=== PATIENT | male | born 1980 | race Caucasian/White ===

== ENCOUNTER 2019-09-07 22:09 | Inpatient (IN) | payer OTHER ==
[2019-09-07] MEDS ORDERED: LIDOCAINE 1% INJ 10MG/ML (20 ML MDV) SQ ONE (22:19)
[2019-09-07] MEDS ORDERED: DIPH,PERTUS(ACELL)TETVAC-LF 0.5 ML VIAL IM ONE (22:20)
--- NOTE | 2019-09-07 23:44 | ED ---
Wound/Laceration HPI - General Source: patient Mode of arrival: EMS Limitations: no limitations <Elisha Medina - Last Filed: 09/07/19 22:32> <Castro Ramsey - Last Filed: 09/08/19 03:39> - General Chief Complaint: Wound/Laceration Stated Complaint: mental health, neck injury Time Seen by Provider: 09/07/19 22:11 - History of Present Illness Initial Comments: 38-year-old male who is a with history of depression, suicide attempt on prozac presenting to the ER today for cc of suicide attempt. Patient took a kitchen knife intentionally to the left side of his neck. He staets he was scared then stopped. Patient parents state that there is guns in the home, patient has one laid out near him when the police arrived. Patient states he only cut superficially he states he couldnt bring himself to cut deeper. Patient denies ingesting any medications in attempt at suicide. Patient states he has had a little to drink today. Patient denies any other complaints. He is cooperative on arrival, agreeable to speak to psychiatric services, who came into the room on arrival--patient did admit to suicidal attempt. Denies homicidal. Petitioned by psychiatry nurse. (Elisha Medina) - Related Data Home Medications Medication Instructions Recorded Confirmed FLUoxetine HCL [PROzac] 40 mg PO DAILY 03/05/15 09/02/15 Dextroamphetamine/Amphetamine 20 mg PO DAILY 09/02/15 09/02/15 [Adderall] Allergies Allergy/AdvReac Type Severity Reaction Status Date / Time venlafaxine HCl Allergy Unknown Verified 09/02/15 20:13 [From Effexor] Review of Systems ROS Other: All systems not noted in ROS Statement are negative. <Elisha Medina - Last Filed: 09/07/19 22:32> ROS Other: All systems not noted in ROS Statement are negative. <Castro Ramsey - Last Filed: 09/08/19 03:39> ROS Statement: Those systems with pertinent positive or pertinent negative responses have been documented in the HPI. Past Medical History Past Medical History: No Reported History Additional Past Medical History / Comment(s): ADHD History of Any Multi-Drug Resistant Organisms: None Reported Past Surgical History: Hernia Repair Additional Past Surgical History / Comment(s): polynodial cyst Past Psychological History: ADD/ADHD, Depression, PTSD Smoking Status: Current every day smoker Past Alcohol Use History: None Reported Past Drug Use History: None Reported <Elisha Medina - Last Filed: 09/07/19 22:32> General Exam Limitations: no limitations <Elisha Medina - Last Filed: 09/07/19 22:32> - General Exam Comments Initial Comments: General: The patient is awake and alert, in no distress Eye: +3 mm pupils are equal, round and reactive to light, extra-ocular movements are intact. No nystagmus. There is normal conjunctiva bilaterally. No signs of icterus. Ears, nose, mouth and throat: There are moist mucous membranes and no oral lesions. Neck: The neck is supple, there is no tenderness or JVD. Cardiovascular: There is a regular rate and rhythm. No murmur, rub or gallop is appreciated. Respiratory: Lungs are clear to auscultation, respirations are non-labored, breath sounds are equal. No wheezes, stridor, rales, or rhonchi. Gastrointestinal: [Soft, non-distended, non-tender abdomen without masses or organomegaly noted. There is no rebound or guarding present. Musculoskeletal: Normal ROM, no tenderness. Strength 5/5. Sensation intact. Pulses equal bilaterally 2+. Neurological: A&O x 3. CN II-XII intact grossly, There are no obvious motor or sensory deficits. Coordination appears grossly intact. Speech is normal. Skin: Skin is warm and dry and no rashes. 6 cm superficial laceration to the left anterior aspect of the neck. No deep puncture present. No active bleeding. No other areas of laceration noted. Linear horizontal. Psychiatric: Cooperative, flat affect. (Elisha Medina) Course Vital Signs 09/07/19 09/08/19 22:13 01:00 Temperature 98.0 F Pulse Rate 81 69 Respiratory 18 18 Rate Blood Pressure 129/77 121/74 O2 Sat by Pulse 95 98 Oximetry Procedures - Laceration Laceration #1 Consent Obtained: verbal consent Indication: laceration Site: neck Size (cm): 6 Description: linear Depth: simple, single layer Anesthetic Used: lidocaine 1% Anesthesia Technique: local infiltration Amount (mls): 2 Pre-repair: wound explored, irrigated extensively, deep structures intact Type of Sutures: nylon Size of Sutures: 4-0 Number of Sutures: 10 Technique: simple, interrupted Patient Tolerated Procedure: well, no complications <Elisha Medina - Last Filed: 09/07/19 22:32> Medical Decision Making <Elisha Medina - Last Filed: 09/07/19 22:32> - Lab Data Result diagrams: 09/08/19 00:54 09/08/19 00:54 <Castro Ramsey - Last Filed: 09/08/19 03:39> - Medical Decision Making [age] male presented for intentional laceration to the left side of the neck it is superficial in nature. There is no evidence of deep puncture. Patient's bleeding controlled on arrival. Patient has no focal neurological deficit he appears well he has flat affect. Patient states this was a suicide attempt patient was petitioned. Patient denies homicidal ideations. Patient evaluated by EPS nurse, recommended transfer to [facility] for inpatient services. Patient agree able, cooperative in ER. Laceration was repaired, no complication. Needs removal in 7-10 days. (Elisha Medina) I saw this patient in conjunction with the physician employee relations assistant. I performed independent history and physical exam. Agree with case management.. I did see the patient for purposes of following the clinical certification. (Castro Ramsey) - Lab Data Lab Results 09/08/19 09/08/19 Range/Units 00:54 00:54 WBC 12.0 H (3.8-10.6) k/uL RBC 4.87 (4.30-5.90) m/uL Hgb 14.6 (13.0-17.5) gm/dL Hct 44.3 (39.0-53.0) % MCV 90.8 (80.0-100.0) fL MCH 30.0 (25.0-35.0) pg MCHC 33.0 (31.0-37.0) g/dL RDW 14.1 (11.5-15.5) % Plt Count 243 (150-450) k/uL Neutrophils % 82 % Lymphocytes % 12 % Monocytes % 4 % Eosinophils % 0 % Basophils % 0 % Neutrophils # 9.9 H (1.3-7.7) k/uL Lymphocytes # 1.4 (1.0-4.8) k/uL Monocytes # 0.5 (0-1.0) k/uL Eosinophils # 0.0 (0-0.7) k/uL Basophils # 0.0 (0-0.2) k/uL Sodium 138 (137-145) mmol/L Potassium 4.7 (3.5-5.1) mmol/L Chloride 104 (98-107) mmol/L Carbon Dioxide 30 (22-30) mmol/L Anion Gap 4 mmol/L BUN 13 (9-20) mg/dL Creatinine 0.74 (0.66-1.25) mg/dL Est GFR (CKD-EPI)AfAm >90 (>60 ml/min/1.73 sqM) Est GFR (CKD-EPI)NonAf >90 (>60 ml/min/1.73 sqM) Glucose 91 (74-99) mg/dL Calcium 9.6 (8.4-10.2) mg/dL Total Bilirubin 0.4 (0.2-1.3) mg/dL AST 41 (17-59) U/L ALT 32 (4-49) U/L Alkaline Phosphatase 58 (38-126) U/L Total Protein 7.6 (6.3-8.2) g/dL Albumin 4.5 (3.5-5.0) g/dL Disposition Is patient prescribed a controlled substance at d/c from ED?: No Time of Disposition: 23:47 - Out of Hospital Transfer - Req. Specs Out of Hospital Transfer - Requested Specifics[facility] <Elisha Medina - Last Filed: 09/07/19 22:32> <Castro Ramsey - Last Filed: 09/08/19 03:39> Clinical Impression: Laceration of neck, Intentional self-harm by knife, Suicidal ideation, History of posttraumatic stress disorder (PTSD), History of depression Disposition: TRANSFER TO PSYCH HOSP/UNIT Condition: Serious Referrals: None,Stated [Primary Care Provider] - 1-2 days
[2019-09-08 01:13] LABS: Basophils % (A) 0 %; Eosinophils % (A) 0 %; HCT 44.3 % (39.0-53.0); HGB 14.6 gm/dL (13.0-17.5); Lymphocytes # (A) 1.4 k/uL (1.0-4.8); Lymphocytes % (A) 12 %; MCV 90.8 fL (80.0-100.0); Mean Platelet Volume 7.2; Monocytes # (A) 0.5 k/uL (0-1.0); Monocytes % (A) 4 %; Neutrophils # (A) 9.9 k/uL (1.3-7.7); Neutrophils % (A) 82 %; Platelet Count 243 k/uL (150-450); RBC 4.87 m/uL (4.30-5.90); RDW 14.1 % (11.5-15.5)
[2019-09-08 01:32] LABS: ALT 32 U/L (4-49); AST 41 U/L (17-59); African American GFR (CKD) >90 (>60 ml/min/1.73 sqM); Albumin 4.5 g/dL (3.5-5.0); Alkaline Phosphatase 58 U/L (38-126); Anion Gap 4 mmol/L; Blood Urea Nitrogen 13 mg/dL (9-20); Calcium 9.6 mg/dL (8.4-10.2); Carbon Dioxide 30 mmol/L (22-30); Chloride 104 mmol/L (98-107); Glucose 91 mg/dL (74-99); Non-African American GFR(CKD) >90 (>60 ml/min/1.73 sqM); Potassium 4.7 mmol/L (3.5-5.1); Sodium 138 mmol/L (137-145); Total Bilirubin 0.4 mg/dL (0.2-1.3); Total Protein 7.6 g/dL (6.3-8.2)
[2019-09-08] MEDS ORDERED: ONDANSETRON 4 MG/2 ML VIAL IVP STA (01:35)
[2019-09-08] MEDS ORDERED: MAG HYDROX/AL HYDROX/SIMETH 30 ML CUP PO PRN (05:07)
[2019-09-08] MEDS ORDERED: QUEtiapine 50 MG TAB PO PRN (05:12)
[2019-09-08 07:30] LABS: Appearance,Urine Clear (Clear); Bilirubin,Urine Negative (Negative); Blood,Urine Negative (Negative); Color,Urine Yellow; Glucose,Urine (UA) Negative (Negative); Ketones,Urine 1+ (Negative); Leukocyte Esterase,Urine Negative (Negative); Nitrite,Urine Negative (Negative); PH, Urine 6.5 (5.0-8.0); Protein,Urine Negative (Negative); Specific Gravity,Urine 1.017 (1.001-1.035); Urobilinogen,Urine <2.0 mg/dL (<2.0)
[2019-09-08 07:45] LABS: Urn Cannabinoid Scrn Detected (NotDetected)
[2019-09-08 07:46] LABS: Amphetamine Screen,Urine Not Detected (NotDetected); Barbiturate Screen,Urine Not Detected (NotDetected); Benzodiazepines Screen,Urine Detected (NotDetected); Cocaine Screen,Urine Not Detected (NotDetected); Methadone Screen, Urine Not Detected (NotDetected); Opiate Screen,Urine Not Detected (NotDetected); Oxycodone Screen, Urine Not Detected (NotDetected); Phencyclidine Screen,Urine Not Detected (NotDetected); Tricyclic Antidepressant,Urine Not Detected (NotDetected)
[2019-09-08 08:43] LABS: Basophils # (A) 0.1 k/uL (0-0.2); Basophils % (A) 1 %; Eosinophils # (A) 0.1 k/uL (0-0.7); Eosinophils % (A) 1 %; HCT 46.8 % (39.0-53.0); HGB 15.3 gm/dL (13.0-17.5); Lymphocytes # (A) 1.7 k/uL (1.0-4.8); Lymphocytes % (A) 17 %; MCH 30.2 pg (25.0-35.0); MCHC 32.7 g/dL (31.0-37.0); MCV 92.4 fL (80.0-100.0); Mean Platelet Volume 7.1; Monocytes # (A) 0.6 k/uL (0-1.0); Monocytes % (A) 6 %; Neutrophils # (A) 7.1 k/uL (1.3-7.7); Neutrophils % (A) 73 %; Platelet Count 256 k/uL (150-450); RBC 5.07 m/uL (4.30-5.90); RDW 14.2 % (11.5-15.5); WBC 9.6 k/uL (3.8-10.6)
[2019-09-08 08:54] LABS: ALT 36 U/L (4-49); AST 41 U/L (17-59); African American GFR (CKD) >90 (>60 ml/min/1.73 sqM); Albumin 4.6 g/dL (3.5-5.0); Alkaline Phosphatase 64 U/L (38-126); Anion Gap 6 mmol/L; Blood Urea Nitrogen 15 mg/dL (9-20); Calcium 9.7 mg/dL (8.4-10.2); Carbon Dioxide 29 mmol/L (22-30); Chloride 103 mmol/L (98-107); Cholesterol 241 mg/dL (<200); Glucose 84 mg/dL (74-99); Non-African American GFR(CKD) >90 (>60 ml/min/1.73 sqM); Potassium 4.3 mmol/L (3.5-5.1); Sodium 138 mmol/L (137-145); Total Bilirubin 0.9 mg/dL (0.2-1.3); Total Protein 7.8 g/dL (6.3-8.2); Triglycerides 72 mg/dL (<150)
[2019-09-08 09:00] LABS: LDL Cholesterol,Calculated 99 mg/dL (0-99)
[2019-09-08] MEDS ORDERED: FLUoxetine HCL 20 MG CAP PO SCH (09:00)
[2019-09-08 09:09] LABS: HDL Cholesterol 128 mg/dL (40-60)
[2019-09-08] MEDS ORDERED: LORazepam 1 MG TAB PO PRN (12:16)
[2019-09-08] MEDS ORDERED: QUEtiapine 100 MG TAB PO PRN (15:40)
--- NOTE | 2019-09-08 15:52 | P.HP ---
Psychiatric H&P - . H&P Date: 09/08/19 History & Physical: Allergies Allergy/AdvReac Type Severity Reaction Status Date / Time venlafaxine HCl Allergy Unknown Verified 09/02/15 20:13 [From Effexor] Vital Signs Temp 97.8 F 09/08/19 07:28 Pulse 66 09/08/19 07:28 Resp 18 09/08/19 07:28 BP 133/78 09/08/19 07:28 Pulse Ox 97 09/08/19 07:28 Intake & Output 09/07/19 09/08/19 09/08/19 18:59 06:59 18:59 Weight 58.967 kg 58.967 kg Laboratory Last Values WBC 9.6 k/uL (3.8-10.6) 09/08/19 08:25 RBC 5.07 m/uL (4.30-5.90) 09/08/19 08:25 Hgb 15.3 gm/dL (13.0-17.5) 09/08/19 08:25 Hct 46.8 % (39.0-53.0) 09/08/19 08:25 MCV 92.4 fL (80.0-100.0) 09/08/19 08:25 MCH 30.2 pg (25.0-35.0) 09/08/19 08:25 MCHC 32.7 g/dL (31.0-37.0) 09/08/19 08:25 RDW 14.2 % (11.5-15.5) 09/08/19 08:25 Plt Count 256 k/uL (150-450) 09/08/19 08:25 Neutrophils % 73 % 09/08/19 08:25 Lymphocytes % 17 % 09/08/19 08:25 Monocytes % 6 % 09/08/19 08:25 Eosinophils % 1 % 09/08/19 08:25 Basophils % 1 % 09/08/19 08:25 Neutrophils # 7.1 k/uL (1.3-7.7) 09/08/19 08:25 Lymphocytes # 1.7 k/uL (1.0-4.8) 09/08/19 08:25 Monocytes # 0.6 k/uL (0-1.0) 09/08/19 08:25 Eosinophils # 0.1 k/uL (0-0.7) 09/08/19 08:25 Basophils # 0.1 k/uL (0-0.2) 09/08/19 08:25 Sodium 138 mmol/L (137-145) 09/08/19 08:25 Potassium 4.3 mmol/L (3.5-5.1) 09/08/19 08:25 Chloride 103 mmol/L (98-107) 09/08/19 08:25 Carbon Dioxide 29 mmol/L (22-30) 09/08/19 08:25 Anion Gap 6 mmol/L 09/08/19 08:25 BUN 15 mg/dL (9-20) 09/08/19 08:25 Creatinine 0.79 mg/dL (0.66-1.25) 09/08/19 08:25 Est GFR (CKD-EPI)AfAm >90 (>60 ml/min/1.73 sqM) 09/08/19 08:25 Est GFR (CKD-EPI)NonAf >90 (>60 ml/min/1.73 sqM) 09/08/19 08:25 Glucose 84 mg/dL (74-99) 09/08/19 08:25 Calcium 9.7 mg/dL (8.4-10.2) 09/08/19 08:25 Total Bilirubin 0.9 mg/dL (0.2-1.3) 09/08/19 08:25 AST 41 U/L (17-59) 09/08/19 08:25 ALT 36 U/L (4-49) 09/08/19 08:25 Alkaline Phosphatase 64 U/L (38-126) 09/08/19 08:25 Total Protein 7.8 g/dL (6.3-8.2) 09/08/19 08:25 Albumin 4.6 g/dL (3.5-5.0) 09/08/19 08:25 Triglycerides 72 mg/dL (<150) 09/08/19 08:25 Cholesterol 241 mg/dL (<200) H 09/08/19 08:25 LDL Cholesterol, Calc 99 mg/dL (0-99) 09/08/19 08:25 HDL Cholesterol 128 mg/dL (40-60) H 09/08/19 08:25 TSH 1.110 mIU/L (0.465-4.680) 09/08/19 08:25 Urine Color Yellow 09/08/19 07:00 Urine Appearance Clear (Clear) 09/08/19 07:00 Urine pH 6.5 (5.0-8.0) 09/08/19 07:00 Ur Specific [place] 1.017 (1.001-1.035) 09/08/19 07:00 Urine Protein Negative (Negative) 09/08/19 07:00 Urine Glucose (UA) Negative (Negative) 09/08/19 07:00 Urine Ketones 1+ (Negative) H 09/08/19 07:00 Urine Blood Negative (Negative) 09/08/19 07:00 Urine Nitrite Negative (Negative) 09/08/19 07:00 Urine Bilirubin Negative (Negative) 09/08/19 07:00 Urine Urobilinogen <2.0 mg/dL (<2.0) 09/08/19 07:00 Ur Leukocyte Esterase Negative (Negative) 09/08/19 07:00 Urine Opiates Screen Not Detected (NotDetected) 09/08/19 07:00 Ur Oxycodone Screen Not Detected (NotDetected) 09/08/19 07:00 Urine Methadone Screen Not Detected (NotDetected) 09/08/19 07:00 Ur Propoxyphene Screen Not Detected (NotDetected) 09/08/19 07:00 Ur Barbiturates Screen Not Detected (NotDetected) 09/08/19 07:00 U Tricyclic Antidepress Not Detected (NotDetected) 09/08/19 07:00 Ur Phencyclidine Scrn Not Detected (NotDetected) 09/08/19 07:00 Ur Amphetamines Screen Not Detected (NotDetected) 09/08/19 07:00 U Methamphetamines Scrn Not Detected (NotDetected) 09/08/19 07:00 U Benzodiazepines Scrn Detected (NotDetected) H 09/08/19 07:00 Urine Cocaine Screen Not Detected (NotDetected) 09/08/19 07:00 U Marijuana (THC) Screen Detected (NotDetected) H 09/08/19 07:00 09/08/19 15:44 IDENTIFYING DATA: 38-year-old male patient HPI: Patient admitted to the inpatient psychiatric unit [facility] on an involuntary basis. Petition stating "patient admitted he slit his neck open with a knife in an attempt to kill himself." Patient related that he has been feeling depression. He states that someone had contacted the police regarding doing his check and he had a laceration to his neck on that he had cut with his knife. He says at the time he did that he did have thoughts of suicide. He has regrets about doing that. Says is been dealing with alcohol use for 10-15 years. He had some setbacks with his alcohol use over the past few days and relays when he picked up a bottle he got depressed. He describes having a lot of panic attacks. He says last week he also was dealing with having lost his dog and also got into a fight with his brother. PAST PSYCHIATRIC HISTORY: Patient is currently in active treatment with a [facility]. He was going to different programming 3-4 days a week. He had been taking Prozac 60 mg daily which was just increased to 80 mg daily. Says Prozac is the only one that has worked at the [place] for him. He has been on multiple different antidepressants. Lexapro works really well for him but was not affordable. He does state that Seroquel helps him with sleep. He has been at least 200 mg in the past. He also has a history of PTSD with nightmares and flashbacks. He has a history of ADHD. He prefers to be off of benzodiazepines. He denies any history of suicide attempts. This is his first inpatient psychiatric admission. PMH: Per chart history, history of hernia repair and cyst ALLERGIES: Venlafaxine MEDICATIONS: Tylenol when necessary, Maalox when necessary, Prozac, Ativan when necessary, milk of magnesia when necessary, Seroquel when necessary, Geodon when necessary CHEMICAL DEPENDENCY HISTORY: Patient has a history of ten-year alexis with substances relaying that he initially was on pain pills that she got off and then alcohol. He said the past few days is had a few different slips with alcohol use. He has had some sobriety prior. FAMILY PSYCHIATRIC HISTORY: Sister with some depression and alcoholism. FAMILY CHEMICAL DEPENDENCY HISTORY: Sister with alcoholism SOCIAL HISTORY: In an apartment by himself. He was in the [employer] in [place]. He is on disability through the [employer]. He does not have any children. He has been 7 years and currently . MENTAL STATUS EXAM: He is alert and cooperative with the interview. He does present as tearful at times. His mood is depressed. He denies any history of hallucinations. He denies any current thoughts of harm to self or others. No evidence of active psychosis. He is not displaying any agitation. Cognitively appears to be grossly intact. I do not note any significant disorientation and memory disturbance. His insight is adequate, judgment shows evidence of recent impairment. There is a scar noted on his neck. STRENGTHS/WEAKNESSES: Strengthsin active outpatient treatment Weaknessescoping skills INTELLECTUAL FUNCTIONING: Average IMPRESSIONS: Major depressive disorder, recurrent; PTSD; history of alcohol use disorder; history opioid use disorder PLAN: Patient is admitted to the inpatient psychiatric unit [facility] on an involuntary basis, patient is agreeable to sign an adult formal voluntary form. He is placed on SP 15 minute precautions. He'll participate in group and activity therapies. Baseline laboratory workup will be done the patient medical consultation will be ordered. We'll titrate his Prozac as planned to 80 mg daily to help with him depression and anxiety components. We'll also titrate Seroquel up to 100 mg at at bedtime as needed to see if this can help with aspects of mood/anxiety/PTSD symptoms. We will look into any support systems. Estimated length of stay is 5-7 days. Prognosis is guarded.
--- NOTE | 2019-09-08 16:55 | P.HPMEDMHU ---
History of Present Illness H&P Date: 09/08/19 Chief Complaint: depression Patient is a 38-year-old male with a past medical history of posttraumatic stress disorder who presented to the emergency department after attempting this with his throat. He was subsequently admitted to the mental health unit for suicidal ideation. Patient seen and examined. He denies any difficulty swallowing vomiting or neck pain. He states he used a kitchen knife that was clean slice his neck. He denies any neck pain. He denies any fever, cough, nausea, vomiting, diarrhea or constipation. He states that his appetite has been down he has lost about 10 pounds in the last month secondary to his depression. He is being lesion is in the mental health unit and he feels as though his outpatient [facility] and meds were enough to help him. Review of Systems Pertinent positives and negatives as discussed in HPI, a complete review of systems was performed and all other systems are negative. Past Medical History Past Medical History: No Reported History Additional Past Medical History / Comment(s): ADHD History of Any Multi-Drug Resistant Organisms: None Reported Past Surgical History: Hernia Repair Additional Past Surgical History / Comment(s): polynodial cyst Past Psychological History: ADD/ADHD, Depression, PTSD Smoking Status: Current every day smoker Past Alcohol Use History: None Reported Past Drug Use History: None Reported - Past Family History Father Family Medical History: Hypertension Medications and Allergies Home Medications Medication Instructions Recorded Confirmed Type FLUoxetine HCL [PROzac] 80 mg PO DAILY 03/05/15 09/08/19 History QUEtiapine [SEROquel] 50 mg PO HS PRN 09/08/19 09/08/19 History Allergies Allergy/AdvReac Type Severity Reaction Status Date / Time venlafaxine HCl Allergy Unknown Verified 09/02/15 20:13 [From Effexor] Physical Exam Osteopathic Statement: *. No significant issues noted on an osteopathic structural exam other than those noted in the History and Physical/Consult. Vitals: Vital Signs Temp Pulse Pulse Resp BP BP Pulse Ox 09/08/19 07:28 97.8 F 66 18 133/78 97 09/08/19 06:53 75 18 115/67 100 09/08/19 03:36 97.5 F L 70 18 127/67 99 09/08/19 01:00 69 18 121/74 98 09/07/19 22:13 98.0 F 81 18 129/77 95 Intake and Output 09/08/19 09/08/19 09/08/19 06:59 14:59 22:59 Other: Weight 58.967 kg General: non toxic, no distress, appears at stated age, normal weight Derm: Large laceration to right side of neck with [address], no warmth, no erythema, no drainage no unusual ecchymoses, warm, dry Head: atraumatic, normocephalic, symmetric Eyes: EOMI, no lid lag, anicteric sclera, pupils equal round reactive to light ENT: Nose and ears atraumatic, no thrush, no pharyngeal erythema Neck: No thyromegaly, no cervical lymphadenopathy, trachea midline, supple Mouth: no lip lesion, mucus membranes moist Cardiovascular: S1S2 reg, no murmur, positive posterior tibial pulse bilateral, no edema, capillary refill less than 2 seconds Lungs: CTA bilateral, no rhonchi, no rales , no accessory muscle use Abdominal: soft, nontender to palpation, no guarding, no appreciable organomegaly, normal bowel sounds Ext: no gross muscle atrophy, muscle strength 5 out of 5 in all 4 extremities grossly, no contractures, Neuro: CN II-XI grossly intact, light touch intact all 4 extremities, finger to nose within normal limits, Psych: Alert, oriented, appropriate affect Cranial Nerve Examination - Cranial Nerves Cranial Nerve II- Optic: Intact Cranial Nerve III- Oculomotor: Intact Cranial Nerve IV- Trochlear: Intact Cranial Nerve V- Trigeminal: Intact Cranial Nerve - Abducens: Intact Cranial Nerve VII- Facial: Intact Cranial Nerve VIII- Auditory: Intact Cranial Nerve IX- Glossopharyngeal: Intact Cranial Nerve X- Vagus: Intact Cranial Nerve XI- Accessory: Intact Cranial Nerve XII- Hypoglossal: Intact Results CBC & Chem 7: 09/08/19 08:25 09/08/19 08:25 Labs: Abnormal Lab Results - Last 24 Hours (Table) 09/08/19 09/08/19 09/08/19 Range/Units 00:54 07:00 08:25 WBC 12.0 H (3.8-10.6) k/uL Neutrophils # 9.9 H (1.3-7.7) k/uL Cholesterol 241 H (<200) mg/dL HDL Cholesterol 128 H (40-60) mg/dL Urine Ketones 1+ H (Negative) U Benzodiazepines Scrn Detected H (NotDetected) U Marijuana (THC) Screen Detected H (NotDetected) Thrombosis Risk Factor Assmnt - Choose All That Apply Any of the Below Risk Factors Present?: No Other Risk Factors: No Other congenital or acquired thrombophilia - If yes, enter type in comment: No Thrombosis Risk Factor Assessment Level: Very Low Risk Assessment and Plan Assessment: Laceration of the neck -[address] -Nursing to check and monitor every shift for signs of infection -Sutures to be removed in 7-10 days Tobacco abuse -Cessation -Nicotine replacement Depression -Your psych management Thank you for allowing us to participate in the care of this pleasant patient. Do not hesitate to contact us with questions. Someone can be reached from the [facility] hospitalist group all hours of the day at [phone] or via perfect serve.
[2019-09-08 19:41] LABS: Hemoglobin A1C 5.2 % (4.0-6.0)
[2019-09-09] MEDS: ZIPRASIDONE 20 MG VIAL IM PRN (01:36)
[2019-09-09] MEDS: FLUoxetine HCL 20 MG CAP PO SCH (08:02)
[2019-09-09] MEDS ORDERED: QUEtiapine 25 MG TAB PO STA (14:13)
[2019-09-09] MEDS ORDERED: QUEtiapine 100 MG TAB PO PRN (14:35)
--- NOTE | 2019-09-09 14:38 | P.PN ---
Progress Note - Text Progress Note Date: 09/09/19 Interval history: Patient is seen in cross coverage again today. He states that after he took the Seroquel last night he was still awake of for quite a while, then did receive a when necessary Geodon which she was finally able to fall asleep after. He does describe that his anxiety is a little bit better today. He also did receive a 1 time dose of Seroquel not long prior to our discussion of 25 mg. He does not seem to voice any adverse psychotropic medication side effects. Mental status exam: He is alert and cooperative. He does describe his anxiety levels a little bit better today. He does continue to have some ongoing anxiety. Mood jenkins overall seems to be improved. He denies any current thoughts of harm to self. He does not voice any thoughts of harm to others. He describes more recent stressors. No active evidence of psychosis. Plan: Patient will be titrated up on Seroquel 250 mg at bedtime as needed for severe anxiety and to assist with mood augmentation. He states he's been up to at least 200 mg in the past. He does not verbalize any adverse psychotropic med ication side effects. Continue to monitor his ongoing response to treatment monitor for any medication side effects.
[2019-09-09] MEDS: MELATONIN 3 MG TABLET PO PRN (21:36)
[2019-09-10] MEDS ORDERED: QUEtiapine 50 MG TAB PO STA (01:49)
[2019-09-10] MEDS: FLUoxetine HCL 20 MG CAP PO SCH (07:32)
[2019-09-10] MEDS: ZIPRASIDONE 20 MG VIAL IM PRN (07:33)
[2019-09-10] MEDS: NICOTINE 7MG/24HR PATCH TRANSDERM SCH (13:26)
[2019-09-10] MEDS: QUEtiapine 25 MG TAB PO PRN (13:26)
--- NOTE | 2019-09-10 13:27 | P.PN ---
Subjective Progress Note Date: 09/10/19 The patient seen in the chart was reviewed. The patient reports feeling very anxious and unhappy about being in the hospital. The patient reports periods of anxiety and difficulty dealing with the the unit environment. The patient reports poor sleep at night but denies any nightmares last night. The patient continues to report frequent panic attacks and difficulty coping. He reports feeling angry and upset and feels like nobody is hearing him. The patient denies any auditory or visual hallucinations. He denies any active suicidal or homicidal ideations at this time. The patient is requesting an increase in his Seroquel and wants to be on melatonin for sleep. Objective - Vital Signs Vital signs: Vital Signs Temp 98.1 F 09/10/19 06:38 Pulse 73 09/10/19 06:38 Resp 18 09/10/19 06:38 BP 118/68 09/10/19 06:38 Pulse Ox 99 09/10/19 06:38 Intake & Output 09/09/19 09/10/19 09/10/19 18:59 06:59 18:59 Weight 76.4 kg - Exam Mental Status Exam: General Appearance: Patient appears to be stated age is alert, directable. fPatient has fair eye contact. Behavior: Patient is seated comfortably. Appears to be anxious Speech: Patient's speech is goal-directed . Rapid and pressured Mood/Affect: Mood is depressed and affect is congruent Suicidality/Homicidality: Patient denies any active suicidal or homicidal ideations. Perceptions: The patient denies any auditory or visual hallucinations at this time Though content/process: Paranoia but denies any delusional thinking. Memory and concentration: AOX3, grossly intact for the purposes of this session. Judgment and insight: Limited - Labs CBC & Chem 7: 09/08/19 08:25 09/08/19 08:25 Assessment and Plan Assessment: Major depressive disorder with anxiety and suicidal ideations. Post traumatic stress disorder. Plan: Plan 1-1 support and psychotherapy was provided. We'll continue inpatient treatment for stabilization of mood and functioning. Will increase Seroquel to 250 mg by mouth daily at bedtime Will start melatonin 5 mg by mouth daily at bedtime. Will start Seroquel 25 mg by mouth 3 times a day when necessary for anxiety and panic. Continue milieu therapy. Encourage patient to attend group therapy and unit activities. Plan to adjust medications stabilize mood and functioning and to provide safe and restricted environment. Plan to discharge when stable.
[2019-09-10] MEDS: QUEtiapine 100 MG TAB PO SCH (20:43)
[2019-09-10] MEDS: MELATONIN 5 MG TABLET PO SCH (20:43)
[2019-09-10] MEDS: ACETAMINOPHEN TAB 325 MG TAB PO PRN (20:43)
[2019-09-10] MEDS: MELATONIN 3 MG TABLET PO PRN (23:56)
[2019-09-11] MEDS: QUEtiapine 25 MG TAB PO PRN ×2 (01:48→09:22)
[2019-09-11] MEDS: NICOTINE 7MG/24HR PATCH TRANSDERM SCH (07:26)
[2019-09-11] MEDS: ACETAMINOPHEN TAB 325 MG TAB PO PRN ×3 (08:25→23:13)
[2019-09-11] MEDS: FLUoxetine HCL 20 MG CAP PO SCH (08:25)
--- NOTE | 2019-09-11 13:02 | P.PN ---
Subjective Progress Note Date: 09/11/19 The patient seen in the chart was reviewed. The patient continues to report feeling increasingly anxious and has exaggerated startle response. The patient reports difficulty dealing with the noise on the unit. He reports occasional crying spells. The patient reports of poor sleep at night but reports that it has improved mildly. The patient reports good appetite. The patient was tearful during the session. The patient denies any auditory or visual hallucinations. He denies any nightmares or flashbacks at this time but feels anxious and restless all the time. The patient denies any auditory or visual hallucinations. He denies any active suicidal or homicidal ideations at this time. Objective - Vital Signs Vital signs: Vital Signs Temp 97.6 F 09/11/19 03:15 Pulse 73 09/11/19 03:15 Resp 17 09/11/19 03:15 BP 123/81 09/11/19 03:15 Pulse Ox 98 09/11/19 03:15 - Exam Mental Status Exam: General Appearance: Patient appears to be stated age is alert, directable. Patient has fair eye contact. Behavior: Patient is seated comfortably. Appears to be anxious Speech: Patient's speech is goal-directed . Rapid and pressured Mood/Affect: Mood is depressed and affect is expanded Suicidality/Homicidality: Patient denies any active suicidal or homicidal ideations. Perceptions: The patient denies any auditory or visual hallucinations at this time Though content/process: Paranoia but denies any delusional thinking. Memory and concentration: AOX3, grossly intact for the purposes of this session. Judgment and insight: Limited - Labs CBC & Chem 7: 09/08/19 08:25 09/08/19 08:25 Assessment and Plan Assessment: Major depressive disorder with anxiety and suicidal ideations. Post traumatic stress disorder. Plan: Plan 1-1 support and psychotherapy was provided. We'll continue inpatient treatment for stabilization of mood and functioning. Start Neurontin 300 mg PO tid. Continue Seroquel to 250 mg by mouth daily at bedtime Continue melatonin 5 mg by mouth daily at bedtime. Continue Seroquel 25 mg by mouth 3 times a day when necessary for anxiety and panic. Continue milieu therapy. Encourage patient to attend group therapy and unit activities. Plan to adjust medications stabilize mood and functioning and to provide safe and restricted environment. Plan to discharge when stable.
[2019-09-11] MEDS: GABAPENTIN 300 MG CAP PO SCH ×2 (13:05→20:58)
[2019-09-11] MEDS: QUEtiapine 100 MG TAB PO SCH (20:58)
[2019-09-11] MEDS: MELATONIN 5 MG TABLET PO SCH ×2 (20:58→21:00)
[2019-09-12] MEDS: QUEtiapine 25 MG TAB PO PRN ×3 (01:10→17:03)
[2019-09-12] MEDS: MELATONIN 3 MG TABLET PO PRN (01:10)
[2019-09-12] MEDS: ACETAMINOPHEN TAB 325 MG TAB PO PRN ×4 (05:03→20:27)
[2019-09-12] MEDS: GABAPENTIN 300 MG CAP PO SCH (08:25)
[2019-09-12] MEDS: FLUoxetine HCL 20 MG CAP PO SCH (08:25)
[2019-09-12] MEDS: NICOTINE 14MG/24HR PATCH TRANSDERM SCH (08:25)
[2019-09-12] MEDS: MAGNESIUM HYDROXIDE 2,400 MG/10 ML CUP PO PRN (09:47)
--- NOTE | 2019-09-12 10:13 | P.PN ---
Subjective Progress Note Date: 09/12/19 The patient seen in the chart was reviewed. The patient reports little improvement in his anxiety today but continues to report exaggerated startle response. He continues to report poor sleep at night and complained of having nightmares. The patient reports difficulty dealing with the events on the unit but tries to attend and participate in milieu therapy. The patient reports good appetite. The patient denies any auditory or visual hallucinations. He denies any nightmares or flashbacks at this time but feels anxious and restless all the time. The patient denies any auditory or visual hallucinations. He denies any active suicidal or homicidal ideations at this time. The patient signed an ITT but agreed to rescind it. Objective - Vital Signs Vital signs: Vital Signs Temp 97.7 F 09/12/19 06:24 Pulse 79 09/12/19 06:24 Resp 16 09/12/19 06:24 BP 134/88 09/12/19 06:24 Pulse Ox 97 09/12/19 06:24 - Exam Mental Status Exam: General Appearance: Patient appears to be stated age is alert, directable. Patient has fair eye contact. Behavior: Patient is seated comfortably. Appears to be anxious Speech: Patient's speech is goal-directed . Rapid and pressured Mood/Affect: Mood is depressed and affect is expanded Suicidality/Homicidality: Patient denies any active suicidal or homicidal ideations. Perceptions: The patient denies any auditory or visual hallucinations at this time Though content/process: Paranoia but denies any delusional thinking. Memory and concentration: AOX3, grossly intact for the purposes of this session. Judgment and insight: Limited - Labs CBC & Chem 7: 09/08/19 08:25 09/08/19 08:25 Assessment and Plan Assessment: Major depressive disorder with anxiety and suicidal ideations. Post traumatic stress disorder. Plan: Plan 1-1 support and psychotherapy was provided. We'll continue inpatient treatment for stabilization of mood and functioning. Increase Neurontin 400 mg PO qid. Increase Seroquel to 300 mg by mouth daily at bedtime Continue melatonin 5 mg by mouth daily at bedtime. Continue Seroquel 25 mg by mouth 3 times a day when necessary for anxiety and panic. Continue milieu therapy. Encourage patient to attend group therapy and unit activities. Plan to adjust medications stabilize mood and functioning and to provide safe and restricted environment. Plan to discharge when stable.
[2019-09-12] MEDS: GABAPENTIN 400 MG CAP PO SCH ×3 (12:02→21:03)
[2019-09-12] MEDS: QUEtiapine 100 MG TAB PO SCH (20:23)
[2019-09-12] MEDS: MELATONIN 5 MG TABLET PO SCH (20:24)
[2019-09-12] MEDS: ZIPRASIDONE 20 MG VIAL IM PRN (23:59)
[2019-09-13] MEDS: ACETAMINOPHEN TAB 325 MG TAB PO PRN ×3 (06:19→18:20)
[2019-09-13] MEDS: GABAPENTIN 400 MG CAP PO SCH (07:53)
[2019-09-13] MEDS: FLUoxetine HCL 20 MG CAP PO SCH (07:53)
[2019-09-13] MEDS: NICOTINE 14MG/24HR PATCH TRANSDERM SCH (07:53)
[2019-09-13] MEDS: QUEtiapine 25 MG TAB PO PRN ×2 (07:53→12:09)
--- NOTE | 2019-09-13 11:50 | P.PN ---
Subjective Progress Note Date: 09/13/19 The patient seen in the chart was reviewed. The patient still reports feeling anxious and frequent panic attacks. He reports improved sleep last night after getting IM Geodon. He continues to complain of having nightmares. The patient reports difficulty dealing with the events on the unit but tries to attend and participate in milieu therapy. He reports worrying about his sister was in [facility] and is diagnosed with Torres virus and is in ICU. The patient reports good appetite. The patient denies any auditory or visual hallucinations. He denies any nightmares or flashbacks at this time but feels anxious and restless all the time. He denies any active suicidal or homicidal ideations at this time. Objective - Vital Signs Vital signs: Vital Signs Temp 97.9 F 09/13/19 06:09 Pulse 69 09/13/19 06:09 Resp 16 09/13/19 06:09 BP 133/82 09/13/19 06:09 Pulse Ox 95 09/12/19 19:52 - Exam Mental Status Exam: General Appearance: Patient appears to be stated age is alert, directable. Patient has fair eye contact. Behavior: Patient is seated comfortably. Appears to be anxious Speech: Patient's speech is goal-directed . Rapid and pressured Mood/Affect: Mood is depressed and anxious and affect is expanded Suicidality/Homicidality: Patient denies any active suicidal or homicidal ideations. Perceptions: The patient denies any auditory or visual hallucinations at this time Though content/process: Paranoia but denies any delusional thinking. Memory and concentration: AOX3, grossly intact for the purposes of this session. Judgment and insight: Limited - Labs CBC & Chem 7: 09/08/19 08:25 09/08/19 08:25 Assessment and Plan Assessment: Major depressive disorder with anxiety and suicidal ideations. Post traumatic stress disorder. Plan: Plan 1-1 support and psychotherapy was provided. We'll continue inpatient treatment for stabilization of mood and functioning. Increase Neurontin 600 mg PO qid. Start Geodon when he milligrams by mouth twice a day when necessary. Continue Seroquel 300 mg by mouth daily at bedtime Continue melatonin 5 mg by mouth daily at bedtime. Continue Seroquel 25 mg by mouth 3 times a day when necessary for anxiety and panic. Continue milieu therapy. Encourage patient to attend group therapy and unit activities. Plan to adjust medications stabilize mood and functioning and to provide safe and restricted environment. Plan to discharge when stable.
[2019-09-13] MEDS: GABAPENTIN 300 MG CAP PO SCH ×3 (12:09→21:15)
[2019-09-13] MEDS: DOCUSATE 100 MG CAP PO PRN (12:09)
[2019-09-13] MEDS: ZIPRASIDONE 20 MG CAP PO PRN (14:22)
[2019-09-13] MEDS: QUEtiapine 100 MG TAB PO SCH (21:14)
[2019-09-13] MEDS: MELATONIN 5 MG TABLET PO SCH (21:14)
[2019-09-13] MEDS: MELATONIN 3 MG TABLET PO PRN (22:33)
[2019-09-14] MEDS: QUEtiapine 25 MG TAB PO PRN ×3 (02:23→17:44)
[2019-09-14] MEDS: MAGNESIUM HYDROXIDE 2,400 MG/10 ML CUP PO PRN (02:24)
[2019-09-14] MEDS: ACETAMINOPHEN TAB 325 MG TAB PO PRN ×5 (02:26→19:25)
[2019-09-14] MEDS: ZIPRASIDONE 20 MG CAP PO PRN (04:16)
[2019-09-14] MEDS: NICOTINE 14MG/24HR PATCH TRANSDERM SCH (07:06)
[2019-09-14] MEDS: FLUoxetine HCL 20 MG CAP PO SCH (08:11)
[2019-09-14] MEDS: DOCUSATE 100 MG CAP PO PRN (08:11)
[2019-09-14] MEDS: GABAPENTIN 300 MG CAP PO SCH ×2 (08:11→13:33)
--- NOTE | 2019-09-14 13:18 | P.PN ---
Subjective Progress Note Date: 09/14/19 The patient seen in the chart was reviewed. The patient continues to report feeling anxious during the day but reports some improvement in panic attacks. The patient complained of poor sleep last night but denies any nightmares. The patient reports good appetite. The patient denies any auditory or visual hallucinations. He denies any nightmares or flashbacks at this time but feels anxious and restless all the time. The patient reports feeling frustrated at times but has been cooperative and compliant with the treatment. He denies any active suicidal or homicidal ideations at this time. Objective - Vital Signs Vital signs: Vital Signs Temp 98.5 F 09/14/19 12:00 Pulse 80 09/14/19 06:20 Resp 16 09/14/19 06:20 BP 132/87 09/14/19 06:20 Pulse Ox 98 09/14/19 06:20 - Exam Mental Status Exam: General Appearance: Patient appears to be stated age is alert, directable. Patient has fair eye contact. Behavior: Patient is seated comfortably. Appears to be anxious Speech: Patient's speech is goal-directed . Rapid and pressured Mood/Affect: Mood is depressed and anxious and affect is expanded Suicidality/Homicidality: Patient denies any active suicidal or homicidal ideations. Perceptions: The patient denies any auditory or visual hallucinations at this time Though content/process: Paranoia but denies any delusional thinking. Memory and concentration: AOX3, grossly intact for the purposes of this session. Judgment and insight: Limited - Labs CBC & Chem 7: 09/08/19 08:25 09/08/19 08:25 Assessment and Plan Assessment: Major depressive disorder with anxiety and suicidal ideations. Post traumatic stress disorder. Plan: Plan 1-1 support and psychotherapy was provided. We'll continue inpatient treatment for stabilization of mood and functioning. Increase Neurontin 800 mg PO qid. Discontinue PO Geodon. Continue Seroquel 350 mg by mouth daily at bedtime Continue melatonin 5 mg by mouth daily at bedtime. Increase Seroquel 25 mg by mouth 3 times a day and tid when necessary for anxiety and panic. Continue milieu therapy. Encourage patient to attend group therapy and unit activities. Plan to adjust medications stabilize mood and functioning and to provide safe and restricted environment. Plan to discharge when stable.
[2019-09-14] MEDS ORDERED: GABAPENTIN 400 MG CAP PO STA (13:34)
[2019-09-14 14:13] VITALS: BMI 24.8
[2019-09-14] MEDS: QUEtiapine 25 MG TAB PO SCH ×3 (15:39→20:58)
[2019-09-14] MEDS: GABAPENTIN 400 MG CAP PO SCH ×2 (17:47→20:58)
[2019-09-14] MEDS: MELATONIN 5 MG TABLET PO SCH (20:57)
[2019-09-14] MEDS ORDERED: QUEtiapine 100 MG TAB PO SCH (21:00)
[2019-09-15] MEDS: ACETAMINOPHEN TAB 325 MG TAB PO PRN ×5 (00:51→20:25)
[2019-09-15] MEDS: ZIPRASIDONE 20 MG VIAL IM PRN (01:23)
[2019-09-15] MEDS: MAGNESIUM HYDROXIDE 2,400 MG/10 ML CUP PO PRN (05:35)
--- NOTE | 2019-09-15 08:44 | P.PN ---
Progress Note - Text Progress Note Date: 09/15/19 Interval history: Patient was seen wandering the hallways and was directable and agreeable to s peak with ticket writer. Patient appeared to be anxious this morning and stated that he didn't take his Seroquel yet. He states that his mind was racing last night and has difficult time sleeping. He states that his mood has been "up and down". He claims that he is trying to go to groups or distract himself. He states that he slept about 2-3 hours last night. He endorsed having nightmares however listed off several different medications that have not helped him and he states that he feels hopeless. At this time patient denies any suicidal or homicidal ideations intent or plan. Denies any Auditory or visual hallucinations. Patient denies any side effects from the medications and has been compliant with meds. Mental status exam: General Appearance: Patient appears to be stated age is alert, directable, and in attempts to be cooperative. Unshaven. Behavior: No agitated behavior. Patient is calm and directable appears to be anxious. Speech: Patient's speech is fluent and nonpressured. Mood/Affect: Mood is depressed, affect is congruent and anxious. Suicidality/Homicidality: Patient denies having any suicidal or homicidal ideation intent or plan. Perceptions: Patient denies any auditory or visual hallucinations. Though content/process: Patient is logical however is tangential/circumstantial, racing thoughts. Memory and concentration: AOX3, grossly intact for the purposes of this session Judgment and insight: improving mildly Assessment/Plan: Continue with current diagnosis. Patient continues to meet criteria for inpatient psychiatric admission for symptom stabilization and safety.Patient will be maintained on current psychotropic medication regimen, with the exception of a decrease in his nighttime dose of Seroquel to 300 mg daily at bedtime along with added on Vistaril 50 mg daily at bedtime for anxiety/insomnia. Increased melatonin to 10 mg nightly. Monitor for medication compliance and for any psychotropic medication side effects. Will continue to monitor ongoing response to treatment. Encouraged participation in milieu.
[2019-09-15] MEDS: NICOTINE 14MG/24HR PATCH TRANSDERM SCH (08:46)
[2019-09-15] MEDS: FLUoxetine HCL 20 MG CAP PO SCH (08:46)
[2019-09-15] MEDS: QUEtiapine 25 MG TAB PO SCH ×3 (08:47→20:27)
[2019-09-15] MEDS: GABAPENTIN 400 MG CAP PO SCH ×4 (08:47→20:28)
[2019-09-15] MEDS: DOCUSATE 100 MG CAP PO PRN (08:48)
[2019-09-15] MEDS: QUEtiapine 25 MG TAB PO PRN ×2 (10:08→14:23)
[2019-09-15] MEDS: MELATONIN 5 MG TABLET PO SCH (20:27)
[2019-09-15] MEDS: QUEtiapine 100 MG TAB PO SCH (20:28)
[2019-09-15] MEDS ORDERED: hydrOXYzine PAMOATE 25 MG CAP PO SCH (21:00)
[2019-09-15] MEDS: MELATONIN 3 MG TABLET PO PRN (23:00)
[2019-09-16] MEDS: ACETAMINOPHEN TAB 325 MG TAB PO PRN ×6 (00:45→20:38)
[2019-09-16] MEDS: QUEtiapine 25 MG TAB PO PRN ×4 (00:47→17:56)
[2019-09-16] MEDS: MAGNESIUM HYDROXIDE 2,400 MG/10 ML CUP PO PRN (01:25)
[2019-09-16] MEDS: ZIPRASIDONE 20 MG VIAL IM PRN (01:43)
[2019-09-16] MEDS: NICOTINE 14MG/24HR PATCH TRANSDERM SCH (05:46)
[2019-09-16 07:28] VITALS: RESP 16
[2019-09-16] MEDS: FLUoxetine HCL 20 MG CAP PO SCH (08:27)
[2019-09-16] MEDS: GABAPENTIN 400 MG CAP PO SCH ×4 (08:27→19:55)
[2019-09-16] MEDS: QUEtiapine 25 MG TAB PO SCH ×3 (08:27→20:48)
[2019-09-16] MEDS: DOCUSATE 100 MG CAP PO PRN (08:28)
--- NOTE | 2019-09-16 08:39 | P.PN ---
Progress Note - Text Progress Note Date: 09/16/19 Interval history: Patient was seen wandering the hallways after breakfast this morning and was directable and agreeable to speak with typewriter tester. Patient appeared to be anxious and stated that "I'm not taking medication over again" referring to Vistaril at nighttime. He states the "it did office it for me it may be start running the hallways". He did state that after he got tired of running he went to sleep for about 4-5 hours last night. Patient continues to complain about the unit and stating that he feels he is not getting adequate care here. He continues to endorse some depression and anxiety. Patient requested to be placed on a stool softener and also to have his medications remained the same. At this time patient denies any suicidal or homicidal ideations intent or plan. Denies any Auditory or visual hallucinations. Patient denies any side effects from the medications and has been compliant with meds. Mental status exam: General Appearance: Patient appears to be stated age is alert, directable, and in attempts to be cooperative. Unshaven. Behavior: No agitated behavior. Patient is calm and directable appears to be anxious. Speech: Patient's speech is fluent and nonpressured. Mood/Affect: Mood is depressed and anxious, affect is congruent and anxious. Suicidality/Homicidality: Patient denies having any suicidal or homicidal ideation intent or plan. Perceptions: Patient denies any auditory or visual hallucinations. Though content/process: Patient is logical however is tangential/circumstantial, racing thoughts. Memory and concentration: AOX3, grossly intact for the purposes of this session Judgment and insight: Limited Assessment/Plan: Continue with current diagnosis. Patient continues to meet criteria for inpatient psychiatric admission for symptom stabilization and safety.Patient will be maintained on current psychotropic medication regimen w ith the exception of discontinuing Vistaril and adding on senna/docusate for constipation. Monitor for medication compliance and for any psychotropic medication side effects. Will continue to monitor ongoing response to treatment. Encouraged participation in milieu.
[2019-09-16] MEDS: SENNOSIDES-DOCUSATE SODIUM 1 EACH TAB PO SCH ×2 (09:04→20:47)
[2019-09-16] MEDS ORDERED: BISACODYL 10 MG SUPP RECTAL STA (14:38)
[2019-09-16] MEDS: MELATONIN 5 MG TABLET PO SCH (19:57)
[2019-09-16] MEDS: QUEtiapine 100 MG TAB PO SCH (19:57)
[2019-09-17] MEDS: ACETAMINOPHEN TAB 325 MG TAB PO PRN ×3 (00:05→10:09)
[2019-09-17] MEDS: QUEtiapine 25 MG TAB PO PRN ×3 (00:05→13:22)
[2019-09-17] MEDS: MELATONIN 3 MG TABLET PO PRN (00:05)
[2019-09-17] MEDS ORDERED: WATER FOR INJECTION, STERILE 10 ML IV ONE (02:12)
[2019-09-17] MEDS ORDERED: ZIPRASIDONE 20 MG VIAL IM ONE (02:12)
[2019-09-17] MEDS: ZIPRASIDONE 20 MG VIAL IM PRN (02:15)
[2019-09-17 07:30] VITALS: BP 137/79; PULSE 70
[2019-09-17] MEDS: FLUoxetine HCL 20 MG CAP PO SCH (07:44)
[2019-09-17] MEDS: SENNOSIDES-DOCUSATE SODIUM 1 EACH TAB PO SCH (07:44)
[2019-09-17] MEDS: NICOTINE 14MG/24HR PATCH TRANSDERM SCH (07:44)
[2019-09-17] MEDS: QUEtiapine 25 MG TAB PO SCH (07:44)
[2019-09-17] MEDS: GABAPENTIN 400 MG CAP PO SCH ×2 (07:44→12:50)
[2019-09-17 13:42] VITALS: TEMP 98.3
--- NOTE | 2019-09-17 14:27 | P.PN ---
Subjective Progress Note Date: 09/17/19 Discharge Note: Patient was seen and chart was reviewed. Case discussed with staff. The patient reports feeling better and then reports significant improvement in depression and anxiety. [ He] admits to fair energy and fair appetite. [ The] claims that she slept better last night and does not remember having a nightmare. At this time patient denies any suicidal or homical ideations, intent or plan. Patient denies any auditory, visual hallucinations and denies any paranoia or delusions. Patient denies any side effects from the medications and has been compliant with meds. Objective - Vital Signs Vital signs: Vital Signs Temp 98.3 F 09/17/19 12:00 Pulse 70 09/17/19 06:24 Resp 16 09/17/19 06:24 BP 137/79 09/17/19 06:24 Pulse Ox 97 09/15/19 08:00 Intake & Output 09/16/19 09/17/19 09/17/19 18:59 06:59 18:59 Weight 80.6 kg - Exam Mental Status Exam: General Appearance: Patient appears to be stated age is alert, directable. fair hygiene and grooming. Patient has improving eye contact. Behavior: Patient is seated without any agitated behavior. Appears to be less anxious Speech: Patient's speech is fluent and nonpressured. soft tone. Mood/Affect: Patient reports their mood/anxiety is mildly improving, affect is congruent Suicidality/Homicidality: Patient denies having any suicidal or homicidal ideation intent or plan. Perceptions: Patient denies any auditory or visual hallucinations. Though content/process: There is no evidence of any delusional thought content and thought process is linear and goal-directed. Memory and concentration: AOX3, grossly intact for the purposes of this session. Judgment and insight: mildly improving. - Labs CBC & Chem 7: 09/08/19 08:25 09/08/19 08:25 Assessment and Plan Assessment: Major depressive disorder with anxiety and suicidal ideations. Post traumatic stress disorder. Plan: Plan 1-1 support and psychotherapy was provided. Continue Neurontin 800 mg PO qid. Switch Seroquel 350 mg to Seroquel XR 400 mg by mouth daily at bedtime Continue melatonin 5 mg by mouth daily at bedtime. Continue Seroquel 25 mg by mouth 3 times a day when necessary for anxiety and panic. Continue milieu therapy. -Discharge home today to follow-up as an outpatient.
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
== END 2019-09-17 14:43 | disposition home or self-care (01) | DRG 885 ==
LOC: EC 22:09 → 3MHU 09-08 05:04
PROVIDERS: ADMIT Psychiatry & Neurology Psychiatry; ATTEND Psychiatry & Neurology Psychiatry
PROC: 0HQ4XZZ Repair Neck Skin, External Approach (ICD-10-PCS; principal; 2019-09-07)
DX: F33.9 Major depressive disorder, recurrent, unspecified (principal); F17.200 Nicotine dependence, unspecified, uncomplicated; F41.0 Panic disorder [episodic paroxysmal anxiety]; F43.10 Post-traumatic stress disorder, unspecified; G47.00 Insomnia, unspecified; K59.00 Constipation, unspecified; X78.1XXA Intentional self-harm by knife, initial encounter; S11.91XA Laceration without foreign body of unspecified part of neck, initial encounter; Z81.8 Family history of other mental and behavioral disorders; Z88.8 Allergy status to other drugs, medicaments and biological substances
CPT/HCPCS: 12002; 36415; 80053; 80061; 80306; 81003; 83036; 84443; 85025; 90471; 90715; 99285

== ENCOUNTER 2023-07-16 23:16 | Emergency (ER) | payer OTHER ==
[2023-07-17 00:11] VITALS: BP 116/72; PULSE 110; RESP 18; TEMP 97.9
--- NOTE | 2023-07-17 00:35 | CT ---
EXAM: CT Head Without Intravenous Contrast CLINICAL HISTORY: ITS.REASON CT Reason: head injury, etoh TECHNIQUE: Axial computed tomography images of the head/brain without intravenous contrast. CTDI is 45.3 mGy and DLP is 1085 mGy-cm. This CT exam was performed using one or more of the following dose reduction techniques: automated exposure control, adjustment of the mA and/or kV according to patient size, and/or use of iterative reconstruction technique. COMPARISON: No relevant prior studies available. FINDINGS: No acute intracranial hemorrhage. No midline shift or mass effect. The territorial ponce-white matter differentiation is maintained throughout. The ventricles and sulci are commensurate with age. The visualized orbits appear grossly unremarkable. The calvarium is intact. The visualized paranasal sinuses and mastoid air cells are grossly clear. IMPRESSION: No acute intracranial hemorrhage, midline shift, or mass effect. EXAM: CT Cervical Spine Without Intravenous Contrast CLINICAL HISTORY: ITS.REASON CT Reason: head injury, etoh TECHNIQUE: Axial computed tomography images of the cervical spine without intravenous contrast. CTDI is 10.5 mGy and DLP is 310 mGy-cm. This CT exam was performed using one or more of the following dose reduction techniques: automated exposure control, adjustment of the mA and/or kV according to patient size, and/or use of iterative reconstruction technique. COMPARISON: No relevant prior studies available. FINDINGS: The vertebral body heights are maintained. The craniocervical junction is intact. The atlanto-dens interval is maintained. The dens is intact. There is no spondylolisthesis. Multilevel cervical spondylosis and degenerative disc disease. Straightening of the cervical lordosis. The unenhanced neck soft tissues are grossly unremarkable. The visualized lung apices are grossly clear. IMPRESSION: No acute fracture or subluxation of the cervical spine.
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
== END 2023-07-17 00:35 | disposition left against medical advice (07) ==
LOC: EC 23:16
DX: S00.31XA Abrasion of nose, initial encounter (principal); F10.129 Alcohol abuse with intoxication, unspecified; F17.200 Nicotine dependence, unspecified, uncomplicated; Z53.29 Procedure and treatment not carried out because of patient's decision for other reasons; Z88.8 Allergy status to other drugs, medicaments and biological substances; Y04.0XXA Assault by unarmed brawl or fight, initial encounter
CPT/HCPCS: 70450; 72125; 99284